=== PATIENT | male | born 1980 | race Caucasian/White ===

== ENCOUNTER 2023-01-29 19:59 | Inpatient (IN) | payer MEDICAID ==
[~2023-01-29] VITALS: Ht 180.3 cm; Wt 88.1 kg
[2023-01-29] MEDS ORDERED: LORazepam 2 MG TABLET PO ONE (22:30)
[2023-01-29 22:33] LABS: BASOPHILS % (AUTO) 0.5 % (0.0-2.0); EOSINOPHILS % (AUTO) 0.4 % (1.0-6.0); HEMATOCRIT 45.9 % (41-53); HEMOGLOBIN 15.4 g/dL (13.5-17.5); LYMPHOCYTES # (AUTO) 3.5 K/uL (1.0-4.8); LYMPHOCYTES % (AUTO) 39.6 % (22.0-44.0); MEAN CORPUSCULAR HEMOGLOBIN 29.1 pg (26.0-34.0); MEAN CORPUSCULAR HGB CONC 33.6 G/dL (31.0-37.0); MEAN CORPUSCULAR VOLUME 87 fL (80-100); MONOCYTES # (AUTO) 0.5 K/uL (0.1-1.0); MONOCYTES % (AUTO) 5.4 % (2.0-9.0); NEUTROPHILS # (AUTO) 4.7 K/uL (1.8-7.7); NEUTROPHILS % (AUTO) 54.1 % (40.0-70.0); PLATELET COUNT (AUTO) 369 K/uL (150-450); RED CELL DISTRIBUTION WIDTH 14.3 % (11.5-14.5); WHITE BLOOD COUNT (AUTO) 8.8 K/uL (4.5-11.0)
[2023-01-29 22:37] LABS: ANION GAP 14 mmol/L (8-16); CALCIUM, TOTAL 9.1 mg/dL (8.8-10.5); CARBON DIOXIDE 24 mmol/L (22-29); CHLORIDE 102 mmol/L (98-107); CREATININE 1.02 mg/dL (0.60-1.30); GLOMERULAR FILTR. RATE CALC > 60 mL/min (>60); GLUCOSE,RANDOM 103 mg/dL (70-110); POTASSIUM 3.4 mmol/L (3.5-5.1); SODIUM SERUM 140 mmol/L (136-145); UREA NITROGEN, BLOOD 8 mg/dL (7-18)
[2023-01-29 22:41] LABS: ACETAMINOPHEN < 2 mcg/mL (10-30)
[2023-01-29 22:43] LABS: ALANINE AMINOTRANSFERASE 41 U/L (12-78); ALBUMIN 3.9 g/dL (3.4-5.0); ALKALINE PHOSPHATASE 82 U/L (46-116); ASPARTATE AMINOTRANSFERASE 27 U/L (15-37); BILIRUBIN,TOTAL 0.2 mg/dL (0.1-1.0); TOTAL PROTEIN, SERUM 7.7 g/dL (6.4-8.2)
[2023-01-29 22:48] LABS: SALICYLATE 1.3 mg/dL (2.8-20.0)
[2023-01-29 22:49] LABS: ALCOHOL, BLOOD (SERUM) 176 mg/dL (0-10)
[2023-01-29] MEDS ORDERED: POTASSIUM CHLORIDE 20 MEQ ER TABLET PO ONE (23:30)
[2023-01-29 23:46] LABS: PH,URINE DRUG SCREEN 5.5 (5.0-8.0)
[2023-01-29 23:51] LABS: ALCOHOL, URINE DRUG SCREEN POSITIVE (NEGATIVE); AMPHET/METH SCREEN,URINE NEGATIVE (NEGATIVE); BARBITURATE SCREEN, URINE NEGATIVE (NEGATIVE); BENZODIAZEPINES SCREEN,URINE NEGATIVE (NEGATIVE); CANNABINOID SCREEN,URINE NEGATIVE (NEGATIVE); COCAINE SCREEN,URINE NEGATIVE (NEGATIVE); METHADONE SCREEN, URINE NEGATIVE (NEGATIVE); OPIATE SCREEN,URINE NEGATIVE (NEGATIVE); PHENCYCLIDINE SCREEN,URINE NEGATIVE (NEGATIVE)
[2023-01-30] VITALS (9 sets, daily range): BP systolic 152–167; BP diastolic 89–109; PULSE 86–105; RESP 18–20; TEMP 97.1–97.6; O2SAT 96–99
[2023-01-30] MEDS ORDERED: LORazepam 2 MG TABLET PO PRN ×2 (03:30→11:30)
[2023-01-30] MEDS ORDERED: ZOLPIDEM TARTRATE 10 MG TABLET PO PRN (03:30)
[2023-01-30] MEDS ORDERED: QUEtiapine FUMARATE 100 MG TABLET PO PRN (03:30)
[2023-01-30] MEDS ORDERED: LORazepam 2 MG TABLET PO ONE (06:45)
[2023-01-30 08:50] LABS: COVID AG,FIA SOURCE NASAL SWAB
[2023-01-30 09:11] LABS: SARS-COV2 (COVID) ANTIGEN,FIA Negative (Negative)
[2023-01-30] MEDS ORDERED: GuaiFENesin/D-METHORPHAN [SUGAR-FREE] 200-20MG/10 ML SYRUP UDCUP PO PRN (11:30)
[2023-01-30] MEDS ORDERED: MAGNESIUM HYDROXIDE SUSPENSION 30 ML UDCUP PO PRN (11:30)
[2023-01-30] MEDS ORDERED: PROMETHAZINE HCL 25 MG TABLET PO PRN (11:30)
[2023-01-30] MEDS ORDERED: TUBERCULIN, PURIFIED PROTEIN DERIVATIVE 5 TU/0.1 ML SYRINGE ID ONE (11:30)
[2023-01-30] MEDS ORDERED: LOPERAMIDE HCL 2 MG CAPSULE PO PRN (11:30)
[2023-01-30] MEDS ORDERED: HydrOXYzine PAMOATE 50 MG CAPSULE PO PRN (11:30)
[2023-01-30] MEDS ORDERED: CYANOCOBALAMIN 1,000 MCG/ML VIAL IM ONE (11:30)
[2023-01-30] MEDS ORDERED: MAG HYDROX/ALUMINUM HYD/SIMETH ES 30 ML SUSPENSION UDCUP PO PRN (11:30)
[2023-01-30] MEDS ORDERED: ACETAMINOPHEN 325 MG TABLET PO PRN (11:30)
[2023-01-30] MEDS: THIAMINE 100 MG TABLET PO SCH (16:35)
[2023-01-30] MEDS: MELATONIN 5 MG TABLET PO SCH (21:23)
[2023-01-30] MEDS: MIRTAZAPINE 15 MG TABLET PO SCH (21:23)
[2023-01-31 02:56] VITALS: BP 164/86; PULSE 89; RESP 18; TEMP 97; O2SAT 100
[2023-01-31] MEDS ORDERED: CloNIDine HCL 0.1 MG TABLET PO PRN (04:00)
[2023-01-31 06:17] LABS: HEMOGLOBIN A1C 5.5 % (3.8-5.6)
[2023-01-31 06:30] VITALS: BP 142/82; PULSE 70; RESP 18; TEMP 97.2; O2SAT 97
[2023-01-31 06:37] LABS: FREE T4 (FREE THYROXINE) 1.01 ng/dL (0.76-1.46); THYROID STIMULATING HORMONE 1.81 uIU/mL (0.36-3.74)
[2023-01-31] MEDS ORDERED: LORazepam 2 MG TABLET PO PRN (07:00)
[2023-01-31] MEDS: THIAMINE 100 MG TABLET PO SCH ×2 (08:21→16:28)
[2023-01-31] MEDS: NALTREXONE HCL 50 MG TABLET PO SCH (08:21)
[2023-01-31] MEDS: FOLIC ACID 1 MG TABLET PO SCH (08:21)
[2023-01-31] MEDS: OMEGA-3/DHA/EPA/FISH OIL 1,000 MG CAPSULE PO SCH (08:21)
[2023-01-31] MEDS: MULTIVITAMINS WITH MINERALS, THERAPEUTIC TABLET PO SCH (08:22)
[2023-01-31] MEDS: LORazepam 2 MG TABLET PO SCH ×4 (08:23→21:15)
[2023-01-31 08:37] VITALS: BP 145/81; PULSE 87; RESP 18; TEMP 97.4; O2SAT 97
[2023-01-31 10:30] VITALS: BP 145/107; PULSE 100; RESP 18; TEMP 97.3; O2SAT 97
[2023-01-31] MEDS: NICOTINE 21 MG/24 HOUR PATCH TD SCH (11:36)
[2023-01-31 14:30] VITALS: BP 148/99; PULSE 102; RESP 19; TEMP 97; O2SAT 98
[2023-01-31 18:30] VITALS: BP_SYST 150; BP_SYST 154; BP_DIAS 79; BP_DIAS 89; PULSE 100; PULSE 105; RESP 18; RESP 19; TEMP 96.9; TEMP 97.3; O2SAT 98; O2SAT 99
[2023-01-31] MEDS: MIRTAZAPINE 15 MG TABLET PO SCH (21:15)
[2023-01-31] MEDS: MELATONIN 5 MG TABLET PO SCH (21:15)
[2023-01-31] MEDS: GABAPENTIN 300 MG CAPSULE PO SCH (21:16)
[2023-02-01 04:20] VITALS: RESP 18
[2023-02-01 08:36] VITALS: BP 140/98; PULSE 64; RESP 18; TEMP 97.8; O2SAT 97
[2023-02-01] MEDS: GABAPENTIN 300 MG CAPSULE PO SCH ×4 (08:53→20:25)
[2023-02-01] MEDS: FOLIC ACID 1 MG TABLET PO SCH (08:53)
[2023-02-01] MEDS: NALTREXONE HCL 50 MG TABLET PO SCH (08:53)
[2023-02-01] MEDS: THIAMINE 100 MG TABLET PO SCH ×2 (08:53→16:55)
[2023-02-01] MEDS: OMEGA-3/DHA/EPA/FISH OIL 1,000 MG CAPSULE PO SCH (08:53)
[2023-02-01] MEDS: LORazepam 2 MG TABLET PO SCH ×4 (08:53→20:25)
[2023-02-01] MEDS: MULTIVITAMINS WITH MINERALS, THERAPEUTIC TABLET PO SCH (08:54)
[2023-02-01] MEDS: NICOTINE 21 MG/24 HOUR PATCH TD SCH (09:00)
[2023-02-01 09:41] VITALS: BP 140/98; PULSE 102; RESP 18; TEMP 97.8; O2SAT 98
[2023-02-01] MEDS ORDERED: NALT50TA PO (11:08)
[2023-02-01] MEDS ORDERED: OMEG-135 PO (11:08)
[2023-02-01] MEDS ORDERED: GABA-1181 PO (11:08)
[2023-02-01] MEDS ORDERED: MELA5TAB40 PO (11:08)
[2023-02-01] MEDS ORDERED: MIRT-89 PO (11:08)
[2023-02-01] MEDS: MELATONIN 5 MG TABLET PO SCH (20:25)
[2023-02-01 20:59] VITALS: BP 145/81; PULSE 145; PULSE 85; RESP 18; TEMP 98; O2SAT 97
[2023-02-01] MEDS ORDERED: MIRTAZAPINE 15 MG TABLET PO SCH (21:00)
[2023-02-02] MEDS ORDERED: LORazepam 1 MG TABLET PO PRN (07:00)
[2023-02-02 08:00] VITALS: BP 147/96; PULSE 97; RESP 19; TEMP 98.1; O2SAT 98
[2023-02-02] MEDS: THIAMINE 100 MG TABLET PO SCH (08:18)
[2023-02-02] MEDS: LORazepam 1 MG TABLET PO SCH ×2 (08:18→12:13)
[2023-02-02] MEDS: NALTREXONE HCL 50 MG TABLET PO SCH (08:18)
[2023-02-02] MEDS: FOLIC ACID 1 MG TABLET PO SCH (08:18)
[2023-02-02] MEDS: GABAPENTIN 300 MG CAPSULE PO SCH (08:18)
[2023-02-02] MEDS: MULTIVITAMINS WITH MINERALS, THERAPEUTIC TABLET PO SCH (08:18)
[2023-02-02] MEDS: OMEGA-3/DHA/EPA/FISH OIL 1,000 MG CAPSULE PO SCH (08:19)
[2023-02-02] MEDS: NICOTINE 21 MG/24 HOUR PATCH TD SCH (08:21)
[2023-02-02 09:34] VITALS: BP 147/96; PULSE 97; RESP 18; TEMP 98.1; O2SAT 98
[2023-02-02] MEDS ORDERED: LOPERAMIDE HCL 2 MG CAPSULE PO PRN (11:30)
[2023-02-03] MEDS ORDERED: LORazepam 1 MG TABLET PO PRN (07:00)
== END 2023-02-02 12:20 | disposition home or self-care (01) | DRG 751 ==
LOC: EMS 20:01 → 3EX 01-30 08:57
PROVIDERS: ADMIT Psychiatry & Neurology Psychiatry; ATTEND Psychiatry & Neurology Psychiatry
DX: F33.2 Major depressive disorder, recurrent severe without psychotic features (principal); E78.5 Hyperlipidemia, unspecified; E87.6 Hypokalemia; I10 Essential (primary) hypertension; F17.210 Nicotine dependence, cigarettes, uncomplicated; F41.9 Anxiety disorder, unspecified; F10.20 Alcohol dependence, uncomplicated; J44.9 Chronic obstructive pulmonary disease, unspecified; Y90.6 Blood alcohol level of 120-199 mg/100 ml; Z20.822 Contact with and (suspected) exposure to COVID-19; Z55.9 Problems related to education and literacy, unspecified; Z59.9 Problem related to housing and economic circumstances, unspecified; Z63.9 Problem related to primary support group, unspecified; Z65.3 Problems related to other legal circumstances; Z91.51 Personal history of suicidal behavior
CPT/HCPCS: 80053; 80061; 80307; 83036; 83930; 84132; 84439; 84443; 85025; 86592; 99285; G0378; G0480; G0481; J3420; Q9967

== ENCOUNTER → 2024-04-09 | Emergency (ER) | payer MEDICAID ==
[~2024-04-09] VITALS: Ht 180.3 cm; Wt 95.5 kg
[~2024-04-09] MED LIST: CHLO25CA6 PO; GABA-1181 PO; LORazepam 2 MG/ML VIAL IM ONE; MELA5TAB40 PO; MIRT-89 PO; NALT50TA6 PO; OMEG-135 PO
[2024-04-09 21:06] LABS: BASOPHILS % (AUTO) 1.2 % (0.0-2.0); EOSINOPHILS % (AUTO) 0.8 % (1.0-6.0); HEMOGLOBIN 16.2 g/dL (13.5-17.5); LYMPHOCYTES # (AUTO) 2.4 K/uL (1.0-4.8); LYMPHOCYTES % (AUTO) 32.5 % (22.0-44.0); MEAN CORPUSCULAR HEMOGLOBIN 29.3 pg (26.0-34.0); MEAN CORPUSCULAR HGB CONC 33.1 G/dL (31.0-37.0); MEAN CORPUSCULAR VOLUME 88 fL (80-100); MONOCYTES # (AUTO) 0.6 K/uL (0.1-1.0); MONOCYTES % (AUTO) 8.6 % (2.0-9.0); NEUTROPHILS # (AUTO) 4.1 K/uL (1.8-7.7); NEUTROPHILS % (AUTO) 56.9 % (40.0-70.0); PLATELET COUNT (AUTO) 204 K/uL (150-450); RED BLOOD CELL COUNT(AUTO) 5.55 MIL/uL (4.50-5.90); RED CELL DISTRIBUTION WIDTH 16.6 % (11.5-14.5); WHITE BLOOD COUNT (AUTO) 7.3 K/uL (4.5-11.0)
[2024-04-09 21:14] LABS: ANION GAP 8 mmol/L (8-16); CALCIUM, TOTAL 8.9 mg/dL (8.8-10.5); CARBON DIOXIDE 31 mmol/L (22-29); CHLORIDE 100 mmol/L (98-107); CREATININE 0.95 mg/dL (0.60-1.30); GLOMERULAR FILTR. RATE CALC > 60 mL/min (>60); GLUCOSE,RANDOM 117 mg/dL (70-110); SODIUM SERUM 139 mmol/L (136-145); UREA NITROGEN, BLOOD 11 mg/dL (7-18)
[2024-04-09 21:16] LABS: ALCOHOL, BLOOD (SERUM) 203 mg/dL (0-10)
[2024-04-09] MEDS: OMEPRAZOLE 20 MG CAPSULE PO ONE (22:29)
[2024-04-09] MEDS: ONDANSETRON 4 MG TABLET PO ONE (22:29)
[2024-04-09] MEDS: LORazepam 2 MG TABLET PO ONE (22:29)
[2024-04-09 23:50] VITALS: BP 123/79; PULSE 91; RESP 18; TEMP 98.1; O2SAT 94
== END | disposition still patient (30) ==
LOC: EMS 19:19
DX: F10.129 Alcohol abuse with intoxication, unspecified (principal); F32.9 Major depressive disorder, single episode, unspecified; I10 Essential (primary) hypertension; F41.9 Anxiety disorder, unspecified; F17.210 Nicotine dependence, cigarettes, uncomplicated; Y90.6 Blood alcohol level of 120-199 mg/100 ml
CPT/HCPCS: 99285; 80048; 85025; 36415; G0480; Q0162

== ENCOUNTER 2024-04-10 10:25 | Emergency (ER) | payer MEDICAID ==
[~2024-04-10] VITALS: Ht 180.3 cm; Wt 95.5 kg
[~2024-04-10 10:25] MED LIST changes: -CHLO25CA6 PO; -LORazepam 2 MG/ML VIAL IM ONE
[2024-04-10 10:30] VITALS: TEMP 97.9
[2024-04-10] MEDS: ChlordiazePOXIDE HCL 25 MG CAPSULE PO ONE ×2 (11:12→13:44)
[2024-04-10] MEDS: METOPROLOL SUCCINATE 50 MG ER TABLET PO ONE (11:12)
[2024-04-10 12:30] VITALS: BP 136/96; PULSE 77; RESP 17; O2SAT 95
[2024-04-10] MEDS ORDERED: CHLO25CA6 PO (13:36)
== END 2024-04-10 14:09 | disposition home or self-care (01) ==
LOC: EMS 10:25
DX: F10.20 Alcohol dependence, uncomplicated (principal); R25.1 Tremor, unspecified; I10 Essential (primary) hypertension; F12.90 Cannabis use, unspecified, uncomplicated; F32.A Depression, unspecified; F41.9 Anxiety disorder, unspecified; Y90.6 Blood alcohol level of 120-199 mg/100 ml
CPT/HCPCS: 99284; Z7502; Z7610